=== PATIENT | female | born 1995 | race African-American/Black ===

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

== ENCOUNTER 2017-04-25 13:18 | Emergency (ER) | payer MEDICAID, OTHER ==
[2017-04-25 14:55] LABS: APPEARANCE,URINE SLIGHTLY-CLOUDY; BILIRUBIN,URINE NEGATIVE (NEGATIVE); GLUCOSE, URINE NEGATIVE (NEGATIVE); KETONES,URINE NEGATIVE (NEGATIVE); LEUKOCYTE ESTERASE,URINE TRACE (NEGATIVE); NITRITE,URINE NEGATIVE (NEGATIVE); PROTEIN,URINE 30 mg/dL (NEGATIVE); URINE SPECIFIC GRAVITY 1.031
[2017-04-25] MEDS ORDERED: CIPROFLOXACIN HCL 500 MG TABLET PO ONE (15:05)
[2017-04-25] MEDS ORDERED: METOCLOPRAMIDE HCL 10 MG TABLET PO ONE (15:05)
--- NOTE | 2017-04-25 15:07 | ER Document Report ---
HPI - HPI Patient complains to provider of: nausea Pain Level: 1 Context: Patient is a 21 year old female who presents to the ED complaining of nausea for one week. She otherwise denies any other symptoms. She denies any fever, chills headache, sore throat, abdominal pain, vomiting, diarrhea or constipation , urinary frequency, urinary urgency, pyuria, hematuria, vaginal discharge, pelvic pain. She does admit to chest pain ever since she had a sternum fracture is nonsurgical over the summer. - CONSTITUTIONAL Constitutional: DENIES: Fever, Chills - GASTROINTESTINAL Gastrointestinal: DENIES: Abdominal Pain, Black / Bloody Stools - URINARY Urinary: DENIES: Dysuria, Urgency, Frequency - REPRODUCTIVE Reproductive: DENIES: :, Abnormal bleeding / discharge Past Medical History - Social History Smoking Status: Never Smoker Chew tobacco use (# tins/day): No Frequency of alcohol use: None Drug Abuse: None Family History: Reviewed & Not Pertinent Patient has suicidal ideation: No Patient has homicidal ideation: No Renal/ Medical History: Denies: Hx Peritoneal Dialysis - Immunizations Immunizations up to date: Yes Hx Diphtheria, Pertussis, Tetanus Vaccination: Yes Vertical Provider Document - CONSTITUTIONAL Agree With Documented VS: Yes Notes: PHYSICAL EXAM GENERAL: Alert, interacts well. LUNGS: Clear to auscultation bilaterally, no wheezes, rales, or rhonchi. No respiratory distress. HEART: Regular rate and rhythm. No murmurs, gallops, or rubs. ABDOMEN: Soft, nondistended, nontender. No guarding, rebound, or rigidity.. Bowel sounds present in all 4 quadrants. EXTREMITIES: Moves all 4 extremities spontaneously. No edema, radial and dorsalis pedis pulses 2/4 bilaterally. No cyanosis. NEUROLOGICAL: Alert and oriented x4. Normal speech. PSYCH: Normal affect, normal mood. SKIN: Warm, dry, normal turgor. No rashes or lesions noted. - INFECTION CONTROL TRAVEL OUTSIDE OF THE [place] IN LAST 30 DAYS: No - RESPIRATORY O2 Sat by Pulse Oximetry: 94 Course - Re-evaluation Re-evalutation: 04/25/17 15:07 Patient is a 21-year-old female who is hemodynamically stable, no acute distress afebrile. Evidence of UTI on urine without presents of a positive hCG. Patient declining any STD evaluation at this time. Tolerating p.o. in the department without any difficulty. Stable for discharge home on antibiotics. - Vital Signs Vital signs: Temp Pulse Resp BP Pulse Ox 98.3 F 107 H 20 123/69 94 04/25/17 13:22 04/25/17 13:22 04/25/17 13:22 04/25/17 13:22 04/25/17 13:22 - Laboratory Laboratory results interpreted by me: 04/25/17 14:25 Urine Protein 30 H Urine Urobilinogen 2.0 H Ur Leukocyte Esterase TRACE H Discharge - Discharge Clinical Impression: UTI (urinary tract infection) Qualifiers: Urinary tract infection type: acute cystitis Hematuria presence: without hematuria Qualified Code(s): N30.00 - Acute cystitis without hematuria Condition: Good Disposition: HOME, SELF-CARE Additional Instructions: URINARY TRACT INFECTION: Your evaluation indicates that you have a urinary tract infection. This is due to germs growing in the bladder. This is a common problem. This infection usually responds quickly to antibiotics. Your antibiotic should be taken exactly as prescribed. Drink plenty of fluids -- three to four quarts a day. Occasionally, a bladder anesthetic will be prescribed to help stop the feeling of urgency until the antibiotic has a chance to clear the infection. This may cause your urine to be dark orange. Certain urine infections require a culture. If the doctor obtained a culture, the results will be back in two days. You should call to see if a change in treatment is needed. A repeat urinalysis after you finish treatment is often recommended. The physician will let you know if further testing is required. Call the doctor if you develop fever, chills, flank pain, inability to urinate, or blood in the urine. ANTIBIOTIC THERAPY: You have been given an antibiotic prescription. It's important that you take all the medication, unless instructed otherwise by your physician. Failure to complete the entire course can result in relapse of your condition. Common side effects of antibiotics include nausea, intestinal cramping, or diarrhea. Women may develop vaginal yeast infections, and babies can get yeast (thrush) in the mouth following the use of antibiotics. Contact your physician if you develop significant side effects from this medication. Allergy to this antibiotic can result in hives, wheezing, faintness, or itching. If symptoms of allergy occur, stop the medication and call the doctor. CIPROFLOXACIN: You have been given an antibacterial agent, ciprofloxacin (Cipro). This medicine is not related to the penicillins, sulfas, cephalosporins, or tetracyclines. It is often given to patients who are allergic to these drugs. It has been chosen for you either because other drugs are not appropriate, or because of the nature of your problem. Cipro should not be taken with antacids, as these can decrease its effectiveness. It can be taken without regard to meals. CIPRO SHOULD NOT BE TAKEN BY CHILDREN, NURSING WOMEN, OR WOMEN. Although Cipro is usually well-tolerated, common side effects can include nausea and diarrhea. Contact your doctor if you experience any unusual symptoms while on this medication, such as joint pain or swelling, shortness of breath, wheezing, faintness, or hives. FOLLOW-UP CARE: If you have been referred to a physician for follow-up care, call the physician s office for an appointment as you were instructed or within the next two days. If you experience worsening or a significant change in your symptoms, notify the physician immediately or return to the Emergency Department at any time for re-evaluation. Prescriptions: Ciprofloxacin HCl [Cipro 250 mg Tablet] 1 tab PO BID #6 tab Metoclopramide HCl [Reglan 10 mg Tablet] 1 - 2 tab PO ASDIR PRN #25 tablet PRN Reason:
[2017-04-25 15:31] VITALS: BP 128/80
== END 2017-04-25 15:31 | disposition home or self-care (01) ==
LOC: ER 13:18
DX: N30.00 Acute cystitis without hematuria (principal); R11.0 Nausea; R07.9 Chest pain, unspecified
CPT/HCPCS: 81001; 81025; 99283

== ENCOUNTER 2017-08-06 17:01 | Emergency (ER) | payer OTHER ==
[2017-08-06 17:07] VITALS: BP 133/75
--- NOTE | 2017-08-06 17:30 | ER Document Report ---
HPI - HPI Onset: Last week Onset/Duration: Waxing and waning Pain Level: Denies Context: Patient presents complaining of headache 2 episodes this week but denies any headache pain at this time. Patient also reports generalized abdominal cramping off and on over the past week but denies any abdominal pain today. Patient denies any nausea, vomiting, diarrhea. Patient denies any fever or urinary symptoms. Patient does complain of difficulty staying asleep at night. Patient states that she has been increasing the number of hours that she has been working and that her symptoms coincided with this change in her work schedule. Associated Symptoms: Headache - This week, none now, Other - Insomnia. denies: Nonproductive cough, Productive cough, Fever, Nausea, Vomiting, Rhinnorhea Exacerbated by: Denies Relieved by: Denies Similar symptoms previously: No Recently seen / treated by doctor: No - ROS ROS below otherwise negative: Yes Systems Reviewed and Negative: Yes All other systems reviewed and negative - CONSTITUTIONAL Constitutional: DENIES: Fever, Chills - EENT EENT: DENIES: Sore Throat, Congestion - NEURO Neurology: REPORTS: Headache - Earlier this week, none now - GASTROINTESTINAL Gastrointestinal: REPORTS: Abdominal Pain - Off and on this week, none now - URINARY Urinary: DENIES: Dysuria, Urgency, Frequency - REPRODUCTIVE Reproductive: DENIES: : - DERM Skin Color: Normal Skin Problems: None Past Medical History - General Information source: Patient - Social History Smoking Status: Never Smoker Chew tobacco use (# tins/day): No Frequency of alcohol use: None Drug Abuse: None Occupation: restaurant Lives with: Family Family History: Reviewed & Not Pertinent Patient has suicidal ideation: No Patient has homicidal ideation: No - Medical History Medical History: Negative Renal/ Medical History: Denies: Hx Peritoneal Dialysis Surgical Hx: Negative - Immunizations Immunizations up to date: Yes Hx Diphtheria, Pertussis, Tetanus Vaccination: Yes Vertical Provider Document - CONSTITUTIONAL Agree With Documented VS: Yes Exam Limitations: No Limitations General Appearance: WD/WN, No Apparent Distress - INFECTION CONTROL TRAVEL OUTSIDE OF THE [place] IN LAST 30 DAYS: No - HEENT HEENT: Atraumatic, Normal ENT Exam, Normocephalic - NECK Neck: Normal Inspection, Supple. negative: Lymphadenopathy-Left, Lymphadenopathy-Right - RESPIRATORY Respiratory: Breath Sounds Normal, No Respiratory Distress O2 Sat by Pulse Oximetry: 99 - CARDIOVASCULAR Cardiovascular: Regular Rate, Regular Rhythm, No Murmur - GI/ABDOMEN Gastrointestinal: Abdomen Soft, Abdomen Non-Tender, No Organomegaly, Normal Bowel Sounds - BACK Back: Normal Inspection. negative: CVA Tenderness-Right, CVA Tenderness-Left - MUSCULOSKELETAL/EXTREMETIES Musculoskeletal/Extremeties: MAEW, FROM, Non-Tender - NEURO Level of Consciousness: Awake, Alert, Appropriate Motor/Sensory: No Motor Deficit - DERM Integumentary: Warm, Dry, No Rash Course - Re-evaluation Re-evalutation: 20:00 Patient's abdomen soft, nontender. Patient nontoxic in appearance. Patient denies any headache symptoms at this time. Discussed importance of good sleep hygiene. Patient encouraged to follow-up with the primary doctor for further evaluation of insomnia symptoms. Patient advised that she can take Benadryl [id number] to help with this. - Vital Signs Vital signs: Temp Pulse Resp BP Pulse Ox 97.9 F 78 18 133/75 H 99 08/06/17 17:04 08/06/17 17:04 08/06/17 17:04 08/06/17 17:04 08/06/17 17:04 Discharge - Discharge Clinical Impression: resolved headache, Resolved abdominal pain Insomnia Qualifiers: Insomnia type: unspecified Qualified Code(s): G47.00 - Insomnia, unspecified Condition: Stable Disposition: HOME, SELF-CARE Instructions: Abdominal Pain ([facility]), Headache ([facility]), Insomnia ([facility]) Additional Instructions: Return immediately for any new or worsening symptoms Followup with your primary care provider, call tomorrow to make a followup appointment Follow-up with a primary doctor for further evaluation of your insomnia symptoms. You can take a Benadryl at bedtime to help with your symptoms Speak with your manager business operations to see if you can get a schedule that fits better with your lifestyle Forms: Return to Work Ref[facility]: [facility] [Provider Group] - Follow up as needed
[2017-08-06 18:01] LABS: APPEARANCE,URINE SLIGHTLY-CLOUDY; BILIRUBIN,URINE NEGATIVE (NEGATIVE); COLOR,URINE YELLOW; GLUCOSE, URINE NEGATIVE (NEGATIVE); KETONES,URINE TRACE mg/dL (NEGATIVE); LEUKOCYTE ESTERASE,URINE NEGATIVE (NEGATIVE); NITRITE,URINE NEGATIVE (NEGATIVE); PROTEIN,URINE 30 mg/dL (NEGATIVE); URINE SPECIFIC GRAVITY 1.026; UROBILINOGEN,URINE NEGATIVE mg/dL (<2.0)
== END 2017-08-06 18:34 | disposition home or self-care (01) ==
LOC: ER 17:01
DX: R51 Headache (principal); R10.84 Generalized abdominal pain; G47.00 Insomnia, unspecified
CPT/HCPCS: 81001; 81025; 99284

== ENCOUNTER 2017-12-28 12:11 | Emergency (ER) | payer OTHER ==
[2017-12-28] MEDS ORDERED: ACETAMINOPHEN 325 MG TABLET PO ONE (12:40)
--- NOTE | 2017-12-28 12:43 | ER Document Report ---
ED General Pain - General Chief Complaint: Rib Pain Stated Complaint: ABDOMINAL PAIN Time Seen by Provider: 12/28/17 12:14 Notes: 22-year-old pleasant -Serbian female to the emergency department complaining of a one-week history of right-sided chest pain. No shortness of breath. No fever. No chills. No sweats. Hurts to take a deep breath. Denies any pain or swelling in her legs. Does state that she has a lot of little red dots on both legs. May be it was associated with a new razor that she bought? Denies any significant abdominal pain. No trauma. Not on any medications. Not allergic to any medications. No significant family medical problems. Denies any headache or neck stiffness. Denies any loss of consciousness. Denies any problems with her eyes ears nose or throat. Has not taken anything for pain today. TRAVEL OUTSIDE OF THE [place] IN LAST 30 DAYS: No - HPI Onset: Last week Onset/Duration: Gradual, Constant, Persistent Quality of pain: Achy Severity: Moderate Pain Level: 3 - Related Data Allergies/Adverse Reactions: No Known Allergies Allergy (Verified 12/28/17 12:12) Past Medical History - General Information source: Patient - Social History Smoking Status: Never Smoker Cigarette use (# per day): No Frequency of alcohol use: None Drug Abuse: None Lives with: Family Family History: Reviewed & Not Pertinent Patient has suicidal ideation: No Patient has homicidal ideation: No Renal/ Medical History: Denies: Hx Peritoneal Dialysis - Immunizations Immunizations up to date: Yes Hx Diphtheria, Pertussis, Tetanus Vaccination: Yes Review of Systems - Review of Systems Constitutional: denies: Chills, Diaphoresis, Fever, Malaise, Weakness, Weight gain, Weight loss EENT: denies: Eye pain, Eye discharge, Double vision, Ear pain, Throat pain, Difficulty swallowing, Mouth pain Cardiovascular: denies: Chest pain, Palpitations, Heart racing, Orthopnea, Syncope, Edema Respiratory: Hurts to breathe. denies: Cough, Short of breath, Wheezing Gastrointestinal: denies: Abdominal pain, Diarrhea, Nausea, Vomiting, Constipation, Black stools, Rectal bleeding Genitourinary: denies: Burning, Dysuria, Discharge, Flank pain Female Genitourinary: denies: , Irregular period, Vaginal discharge, Vaginal bleeding Musculoskeletal: denies: Back pain, Joint pain, Muscle pain, Leg swelling, Ankle swelling Hematologic/Lymphatic: See HPI, Other - Red dots the size of a hair follicle bilateral lower extremities, multiple dots.. denies: Blood clots, Easy bleeding , Easy bruising Neurological/Psychological: denies: Confusion, Weakness, Headaches, Numbness Physical Exam - Vital signs Vitals: Temp Pulse Resp BP Pulse Ox 98.1 F 64 16 129/75 H 97 12/28/17 12:15 12/28/17 12:15 12/28/17 12:15 12/28/17 12:15 12/28/17 12:15 Interpretation: Normal - General General appearance: Appears well, Alert - HEENT Head: Normocephalic, Atraumatic Eyes: Normal Pupils: PERRL - Respiratory Respiratory status: No respiratory distress Chest status: Nontender Breath sounds: Normal Chest palpation: Normal - Cardiovascular Rhythm: Regular Heart sounds: Normal auscultation Murmur: No Notes: Clearly reproducible and palpable right lateral mid axillary tenderness. - Abdominal Inspection: Normal Distension: No distension Bowel sounds: Normal Tenderness: Nontender Organomegaly: No organomegaly - Back Back: Normal, Nontender - Extremities General upper extremity: Normal inspection, Nontender, Normal color, Normal ROM , Normal temperature General lower extremity: Normal inspection, Nontender, Normal color, Normal ROM , Normal temperature, Normal weight bearing. No: Scarlet's sign - Neurological Neuro grossly intact: Yes Cognition: Normal Orientation: AAOx4 [place] Coma Scale Eye Opening: Spontaneous Ольга Coma Scale Verbal: Oriented [place] Coma Scale Motor: Obeys Commands [place] Coma Scale Total: 15 Speech: Normal Motor strength normal: LUE, RUE, LLE, RLE Sensory: Normal - Psychological Associated symptoms: Normal affect, Normal mood - Skin Skin Temperature: Warm Skin Moisture: Dry Skin Color: Normal Notes: There are multiple small non-blanchable areas of redness about the size of pinprick. Seem to be in a rather uniform distribution around base of hair follicles. Course - Re-evaluation Re-evalutation: 12/28/17 12:44 At this time patient is completely asymptomatic with exception of pain in the right side of her chest with deep inspiration. Not tachycardic. Not hypoxic. Uncertain etiology of small petechial looking red lizarraga on her legs but more likely due to the new razor. Could be some trauma induced by shaving. Will get blood work to check her platelets and liver function studies. Will get a chest x-ray and then urinalysis and then reassess. 12/28/17 12:51 Pulmonary embolism rule out criteria score of 0 12/28/17 14:00 Laboratory 12/28/17 12/28/17 12/28/17 12:55 12:55 12:55 WBC 8.7 RBC 4.52 Hgb 13.9 Hct 40.6 MCV 90 MCH 30.8 MCHC 34.2 RDW 13.0 Plt Count 260 Seg Neutrophils % 61.3 Lymphocytes % 31.7 Monocytes % 5.9 Eosinophils % 0.8 Basophils % 0.3 Absolute Neutrophils 5.3 Absolute Lymphocytes 2.8 Absolute Monocytes 0.5 Absolute Eosinophils 0.1 Absolute Basophils 0.0 Sodium 142.9 Potassium 4.4 Chloride 102 Carbon Dioxide 27 Anion Gap 14 BUN 8 Creatinine 0.65 Est GFR ( Amer) > 60 Est GFR (Non-Af Amer) > 60 Glucose 93 Calcium 10.0 Total Bilirubin 0.6 Direct Bilirubin 0.2 Neonat Total Bilirubin Not Reportable Neonat Direct Bilirubin Not Reportable Neonat Indirect Bili Not Reportable AST 19 ALT 21 Alkaline Phosphatase 52 Total Protein 7.9 Albumin 4.7 Lipase 150.2 Urine Color YELLOW Urine Appearance CLEAR Urine pH 8.0 Ur Specific [place] 1.015 Urine Protein NEGATIVE Urine Glucose (UA) NEGATIVE Urine Ketones NEGATIVE Urine Blood NEGATIVE Urine Nitrite NEGATIVE Urine Bilirubin NEGATIVE Urine Urobilinogen NEGATIVE Ur Leukocyte Esterase NEGATIVE Urine WBC (Auto) 6 Urine RBC (Auto) 1 Squamous Epi Cells Auto 6 Urine Mucus (Auto) RARE Urine Ascorbic Acid NEGATIVE Urine HCG, Qual NEGATIVE Chest X-Ray 12/28/17 12:38 IMPRESSION: NO ACUTE RADIOGRAPHIC FINDING IN THE CHEST. At this time patient's labs are negative. No significant risk factors for PE. PE RC were rule criteria 0. Will discharge at this time with chest wall pain - Vital Signs Vital signs: Temp Pulse Resp BP Pulse Ox 98.1 F 64 16 129/75 H 97 12/28/17 12:15 12/28/17 12:15 12/28/17 12:15 12/28/17 12:15 12/28/17 12:15 - Laboratory Result Diagrams: 12/28/17 12:55 12/28/17 12:55 Discharge - Discharge Clinical Impression: Right-sided chest wall pain Condition: Good Disposition: HOME, SELF-CARE Instructions: Anti-Inflammatory Medication ([facility]), Chest Wall Pain ([facility]) Additional Instructions: Return immediately if you develop shortness of breath, fever, chills, worsening pain, difficulty breathing or for any other concerns. Prescriptions: Ibuprofen [Motrin 800 mg Tablet] 800 mg PO Q8H PRN 10 Days #30 tab PRN Reason: For Pain Scale 3-4
[2017-12-28 13:19] LABS: ABSOLUTE EOSINOPHILS # (AUTO) 0.1 10^3/uL (0.0-0.6); ABSOLUTE LYMPHOCYTES (AUTO) 2.8 10^3/uL (0.5-4.7); ABSOLUTE MONOCYTES (AUTO) 0.5 10^3/uL (0.1-1.4); ABSOLUTE NEUT (AUTO) 5.3 10^3/uL (1.7-8.2); BASOPHILS % (AUTO) 0.3 % (0-2); EOSINOPHILS % (AUTO) 0.8 % (0-6); HEMATOCRIT 40.6 % (36.0-47.0); HEMOGLOBIN 13.9 g/dL (12.0-15.5); LYMPHOCYTES % (AUTO) 31.7 % (13-45); MEAN CORPUSCULAR HEMOGLOBIN 30.8 pg (27.0-33.4); MEAN CORPUSCULAR HGB CONC 34.2 g/dL (32.0-36.0); MEAN CORPUSCULAR VOLUME 90 fl (80-97); MONOCYTES % (AUTO) 5.9 % (3-13); PLATELET COUNT 260 10^3/uL (150-450); RED BLOOD COUNT 4.52 10^6/uL (3.72-5.28); SEGMENTED NEUTROPHILS % (AUTO) 61.3 % (42-78); TOTAL CELLS COUNTED % (AUTO) 100 %; WHITE BLOOD COUNT 8.7 10^3/uL (4.0-10.5)
[2017-12-28 13:30] LABS: ALANINE AMINOTRANSFERASE 21 U/L (9-52); ALBUMIN 4.7 g/dL (3.5-5.0); ALKALINE PHOSPHATASE 52 U/L (38-126); ANION GAP 14 (5-19); ASPARTATE AMINO TRANSFERASE 19 U/L (14-36); BILIRUBIN,DIRECT 0.2 mg/dL (0.0-0.4); BILIRUBIN,TOTAL 0.6 mg/dL (0.2-1.3); BLOOD UREA NITROGEN 8 mg/dL (7-20); CARBON DIOXIDE 27 mmol/L (22-30); CHLORIDE 102 mmol/L (98-107); GLUCOSE 93 mg/dL (75-110); LIPASE 150.2 U/L (23-300); POTASSIUM 4.4 mmol/L (3.6-5.0); SODIUM 142.9 mmol/L (137-145); TOTAL PROTEIN 7.9 g/dL (6.3-8.2)
--- NOTE | 2017-12-28 13:43 | RADIOLOGY REPORT (SQ) ---
EXAM DESCRIPTION: CHEST 2 VIEWS COMPLETED DATE/TIME: 12/28/2017 1:15 pm REASON FOR STUDY: right sided chest pain COMPARISON: 12/03/2017. EXAM PARAMETERS: NUMBER OF VIEWS: two views TECHNIQUE: Digital Frontal and Lateral radiographic views of the chest acquired. RADIATION DOSE: NA LIMITATIONS: none FINDINGS: LUNGS AND PLEURA: No opacities, masses or pneumothorax. No pleural effusion. MEDIASTINUM AND HILAR STRUCTURES: No masses or contour abnormalities. HEART AND VASCULAR STRUCTURES: Heart normal size. No evidence for failure. BONES: No acute findings. HARDWARE: None in the chest. OTHER: No other significant finding. IMPRESSION: NO ACUTE RADIOGRAPHIC FINDING IN THE CHEST. TECHNICAL DOCUMENTATION: JOB ID: [id number] 2010 [employer]- All Rights Reserved Reading location - IP/workstation name: [email or web address]
[2017-12-28 13:57] LABS: APPEARANCE,URINE CLEAR; BILIRUBIN,URINE NEGATIVE (NEGATIVE); COLOR,URINE YELLOW; GLUCOSE, URINE NEGATIVE (NEGATIVE); KETONES,URINE NEGATIVE (NEGATIVE); LEUKOCYTE ESTERASE,URINE NEGATIVE (NEGATIVE); NITRITE,URINE NEGATIVE (NEGATIVE); PROTEIN,URINE NEGATIVE (NEGATIVE); URINE SPECIFIC GRAVITY 1.015; UROBILINOGEN,URINE NEGATIVE mg/dL (<2.0)
[2017-12-28 14:15] VITALS: BP 141/73
== END 2017-12-28 14:16 | disposition home or self-care (01) ==
LOC: ER 12:11
DX: R07.89 Other chest pain (principal); L53.9 Erythematous condition, unspecified
CPT/HCPCS: 36415; 71046; 80053; 81001; 81025; 83690; 85025; 99284

== ENCOUNTER 2018-02-07 16:09 | Emergency (ER) | payer OTHER ==
[2018-02-07] MEDS ORDERED: ONDANSETRON HCL INJ/PF 4 MG/2 ML SDV IV ONE (16:31)
[2018-02-07] MEDS ORDERED: NORMAL SALINE 1000 ML 1,000 ML IV ONE (16:31)
--- NOTE | 2018-02-07 16:53 | ER Document Report ---
ED General - General Chief Complaint: Vomiting Stated Complaint: VOMITING Time Seen by Provider: 02/07/18 16:25 Notes: 22-year-old female with a three-day history of vomiting and lightheadedness but denies abdominal pain or diarrhea, denies any fevers. States that typically she has 1 day of vomiting when her period starts however this is her third day of her menstrual cycle and she is still vomiting. States nothing else is different about the vomiting and lightheadedness than her usual menstrual vomiting. TRAVEL OUTSIDE OF THE [place] IN LAST 30 DAYS: No - Related Data Allergies/Adverse Reactions: No Known Allergies Allergy (Verified 02/07/18 16:11) Past Medical History - General Information source: Patient - Social History Smoking Status: Never Smoker Chew tobacco use (# tins/day): No Frequency of alcohol use: None Drug Abuse: None Family History: Reviewed & Not Pertinent Patient has suicidal ideation: No Patient has homicidal ideation: No Renal/ Medical History: Denies: Hx Peritoneal Dialysis - Immunizations Immunizations up to date: Yes Hx Diphtheria, Pertussis, Tetanus Vaccination: Yes Review of Systems - Review of Systems Constitutional: See HPI, Weakness EENT: No symptoms reported Cardiovascular: See HPI, Lightheaded Respiratory: No symptoms reported Gastrointestinal: See HPI, Nausea, Vomiting. denies: Abdominal pain, Diarrhea -: Yes All other systems reviewed and negative Physical Exam - Vital signs Vitals: Temp Pulse Resp BP Pulse Ox 98.0 F 101 H 16 120/88 H 99 02/07/18 16:14 02/07/18 16:14 02/07/18 16:14 02/07/18 16:14 02/07/18 16:14 Interpretation: Tachycardic - Notes Notes: GENERAL: Alert, interacts well. Appears anxious and mildly tearful. HEAD: Normocephalic, atraumatic EYES: Pupils equal, round and reactive to light, extraocular movements intact. ENT: Oral mucosa moist, tongue midline. NECK: Full range of motion, supple, trachea midline. LUNGS: Clear to auscultation bilaterally, no wheezes, rales or rhonchi, no respiratory distress. HEART: Regular rate and rhythm, no murmurs, gallops, rubs. ABDOMEN: Soft, nontender, nondistended, bowel sounds present in all 4 quadrants. EXTREMITIES: Moves all 4 extremities spontaneously, no edema, radial and dorsalis pedis pulses 2/4 bilaterally. No cyanosis. NEUROLOGICAL: Alert and oriented x3, normal speech. PSYCH: Normal mood, normal affect. SKIN: Warm, Dry, normal turgor, no rashes or lesions noted. Course - Re-evaluation Re-evalutation: 02/07/18 18:15 CBC shows leukocytosis with white count of 13.8, BMP shows lipase mildly elevated at 365.8. test is negative. Patient was hydrated with a liter of normal saline, given Zofran and then was able to tolerate a cup of water without difficulty. Patient has a very mild case of pancreatitis, will be treated with Zofran and Phenergan, discharged to home, asked to follow a clear liquid diet for the next 2 days then she may start introducing a bland diet and then slowly introduce fat back in. Patient should avoid alcohol. Discharged home. - Vital Signs Vital signs: Temp Pulse Resp BP Pulse Ox 98.0 F 101 H 16 120/88 H 99 02/07/18 16:14 02/07/18 16:14 02/07/18 16:14 02/07/18 16:14 02/07/18 16:14 - Laboratory Result Diagrams: 02/07/18 16:40 02/07/18 16:40 Laboratory results interpreted by me: 02/07/18 02/07/18 16:40 16:40 WBC 13.8 H Seg Neutrophils % 81.9 H Absolute Neutrophils 11.3 H Glucose 116 H Calcium 10.7 H Lipase 365.8 H Discharge - Discharge Clinical Impression: Pancreatitis Qualifiers: Chronicity: acute Pancreatitis type: unspecified pancreatitis type Acute pancreatitis complication: no infection or necrosis Qualified Code(s): K85.90 - Acute pancreatitis without necrosis or infection, unspecified Nausea and vomiting Qualifiers: Vomiting type: unspecified Vomiting Intractability: non-intractable Qualified Code(s): R11.2 - Nausea with vomiting, unspecified Condition: Stable Disposition: HOME, SELF-CARE Additional Instructions: Pancreatitis Pancreatitis is an inflammation of the pancreas, an organ at the back of your abdomen. The pancreas produces insulin and enzymes that digest your food. Pancreatitis can be caused by gallstones in the bile duct, by alcohol or viruses, or by excess fat or calcium in the blood stream. Occasionally, pancreatitis occurs when a stomach ulcer medellin through into the pancreas. We try to find the cause of pancreatitis, but some tests can't be done until the pancreas heals. The usual symptoms of pancreatitis are pain in the pit of the stomach that goes straight through to the back, vomiting, and low-grade fever. Severe cases require hospital admission, but many patients with mild pancreatitis do well at home. You will probably need medicine for pain and for vomiting. Sometimes we prescribe medicine to decrease stomach acid secretion and to decrease flow of pancreatic juices. Start with a diet of clear liquids (soda pop, juices). When the pain is decreasing, you can add some simple starches (potato, toast, applesauce). Avoid proteins and fats until you are completely painfree. When you're better, your doctor may suggest treatment to prevent future pancreatitis (such as gallbladder removal). Avoid alcohol forever. Get immediate treatment for any future episodes. Contact your doctor at once or return here if you have increasing pain, shortness of breath, general swelling, increasing size of the abdomen, continued vomiting, muscle spasms, or other new symptoms. Prescriptions: Ondansetron [Zofran Odt 4 mg Tablet] 1 - 2 tab PO Q4H PRN #15 tab.rapdis PRN Reason: For Nausea/Vomiting
[2018-02-07 16:56] LABS: ABSOLUTE LYMPHOCYTES (AUTO) 1.9 10^3/uL (0.5-4.7); ABSOLUTE MONOCYTES (AUTO) 0.6 10^3/uL (0.1-1.4); ABSOLUTE NEUT (AUTO) 11.3 10^3/uL (1.7-8.2); BASOPHILS % (AUTO) 0.2 % (0-2); HEMATOCRIT 42.3 % (36.0-47.0); HEMOGLOBIN 14.7 g/dL (12.0-15.5); LYMPHOCYTES % (AUTO) 13.8 % (13-45); MEAN CORPUSCULAR HEMOGLOBIN 30.7 pg (27.0-33.4); MEAN CORPUSCULAR HGB CONC 34.6 g/dL (32.0-36.0); MEAN CORPUSCULAR VOLUME 89 fl (80-97); MONOCYTES % (AUTO) 4.1 % (3-13); PLATELET COUNT 317 10^3/uL (150-450); RED BLOOD COUNT 4.77 10^6/uL (3.72-5.28); RED CELL DISTRIBUTION WIDTH 13.2 % (11.5-14.0); SEGMENTED NEUTROPHILS % (AUTO) 81.9 % (42-78); TOTAL CELLS COUNTED % (AUTO) 100 %; WHITE BLOOD COUNT 13.8 10^3/uL (4.0-10.5)
[2018-02-07 17:13] LABS: ANION GAP 13 (5-19); BLOOD UREA NITROGEN 14 mg/dL (7-20); CALCIUM 10.7 mg/dL (8.4-10.2); CARBON DIOXIDE 26 mmol/L (22-30); CHLORIDE 102 mmol/L (98-107); GLUCOSE 116 mg/dL (75-110); LIPASE 365.8 U/L (23-300); POTASSIUM 3.7 mmol/L (3.6-5.0); SODIUM 140.5 mmol/L (137-145)
[2018-02-07] MEDS ORDERED: ONDANSETRON ODT 4 MG TAB (6 TAB/ER DISP) PO PRN (18:17)
[2018-02-07] MEDS ORDERED: PROMETHAZINE HCL 25 MG SUPP (4 SUPP/ER DISP) PR ONE (18:17)
[2018-02-07 18:37] VITALS: BP 133/66
== END 2018-02-07 18:38 | disposition home or self-care (01) ==
LOC: ER 16:09
DX: K85.90 Acute pancreatitis without necrosis or infection, unspecified (principal); R11.2 Nausea with vomiting, unspecified; R42 Dizziness and giddiness; R53.1 Weakness
CPT/HCPCS: 36415; 80048; 83690; 84703; 85025; 96361; 96374; 99283

== ENCOUNTER 2018-03-22 15:32 | Inpatient (IN) | payer OTHER ==
[2018-03-22] MEDS ORDERED: NORMAL SALINE 1000 ML 1,000 ML IV ONE ×3 (15:55→17:47)
--- NOTE | 2018-03-22 16:02 | ER Document Report ---
ED General - General Mode of Arrival: Ambulatory Information source: Patient TRAVEL OUTSIDE OF THE [place] IN LAST 30 DAYS: No <ADILSON SWANSON - Last Filed: 03/22/18 20:33> <EPHRIAM BRASHER - Last Filed: 03/22/18 21:52> - General Chief Complaint: Numbness Stated Complaint: TINGLING IN FEET Time Seen by Provider: 03/22/18 15:45 Notes: Patient is a 22 year old female with a reported history of recurrent UTIs presents to the emergency department complaining of numbness in the bilateral lower extremities onset last night. At bedside, patient states she is also having her heart racing but is unsure of when it started. Patient states she was seen and discharged from this emergency department a little over a month ago and was diagnosed with Pancreatitis. She states 1 week ago, she presented to [facility] and was diagnosed with an UTI that progressed into her lungs and was discharged home with antibiotics. Patient also complains of back pain, vomiting, and decreased appetite onset 2 days ago. Patient denies any dysuria or abdominal pain or a history of hospital admissions or surgeries. According to records, patient was started on Macrobid last week. (ADILSON SWANSON) - Related Data Allergies/Adverse Reactions: No Known Allergies Allergy (Verified 03/22/18 15:33) Past Medical History - General Information source: Patient - Social History Smoking Status: Never Smoker Cigarette use (# per day): No Chew tobacco use (# tins/day): No Smoking Education Provided: No Frequency of alcohol use: None Family History: Reviewed & Not Pertinent - Immunizations Immunizations up to date: Yes Hx Diphtheria, Pertussis, Tetanus Vaccination: Yes <ADILSON SWANSON - Last Filed: 03/22/18 20:33> Review of Systems - Review of Systems Constitutional: No symptoms reported EENT: No symptoms reported Cardiovascular: See HPI, Heart racing Respiratory: No symptoms reported Gastrointestinal: See HPI, Vomiting, Poor appetite Genitourinary: No symptoms reported Female Genitourinary: No symptoms reported Musculoskeletal: See HPI, Back pain Skin: No symptoms reported Hematologic/Lymphatic: No symptoms reported Neurological/Psychological: No symptoms reported -: Yes All other systems reviewed and negative <ADILSON SWANSON - Last Filed: 03/22/18 20:33> Physical Exam - General General appearance: Appears well, Anxious In distress: None - HEENT Head: Normocephalic, Atraumatic Eyes: Normal Conjunctiva: Normal Extraocular movements intact: Yes Pupils: PERRL Mucous membranes: Dry - Respiratory Respiratory status: No respiratory distress Chest status: Nontender Breath sounds: Normal Chest palpation: Normal - Cardiovascular Rhythm: Tachycardia Heart sounds: Normal auscultation Murmur: No Friction rub: No Gallop: None auscultated - Abdominal Inspection: Normal Distension: No distension Bowel sounds: Normal Tenderness: Nontender Organomegaly: No organomegaly - Back Back: CVA tenderness - Bilateral - Extremities General upper extremity: Normal ROM General lower extremity: Normal ROM - Neurological Neuro grossly intact: Yes Cognition: Normal Orientation: AAOx4 [place] Coma Scale Eye Opening: Spontaneous [place]ль[place] Coma Scale Verbal: Oriented Ольга Coma Scale Motor: Obeys Commands [place] Coma Scale Total: 15 Speech: Normal - Psychological Associated symptoms: Anxious <ADILSON SWANSON - Last Filed: 03/22/18 20:33> - Respiratory Respiratory status: Respiratory distress - Mild, Retractions Chest status: Nontender Breath sounds: Decreased air movement - Right lung <EPHRAIM BRASHER - Last Filed: 03/22/18 21:52> - Vital signs Vitals: Temp Pulse Resp BP Pulse Ox 98.2 F 168 H 16 108/70 98 03/22/18 15:37 03/22/18 15:37 03/22/18 15:37 03/22/18 15:37 03/22/18 15:37 Course - Laboratory Result Diagrams: 03/22/18 15:47 03/22/18 15:47 <ADILSON SWANSON - Last Filed: 03/22/18 20:33> - Laboratory Result Diagrams: 03/22/18 15:47 03/22/18 15:47 <EPHRAIM BRASHER - Last Filed: 03/22/18 21:52> - Re-evaluation Re-evalutation: 03/22/18 17:42 Dr. Harper accepts patient for admission. 03/22/18 18:37 Dr. Perez from [facility] accepts patient for transfer to [facility] to [facility]. (ADILSON SAWNSON) 17:30 Temp 98 HR 120s BP 132/85 RR 24 100% 2L nc R lung with no raiza movement Good capiulalry refill Skin cool Patient is a 22-year-old female who comes in complaining of tingling in her feet. Patient states that she was recently at [facility] and treated for urinary tract infection but she cannot remember the name of the antibiotic. Also stated something about it going into her lung. Received records from [facility]. Patient was diagnosed with UTI and also had nonspecific flank pain. Questionable pleural effusion and right chest wall on CT abdomen pelvis. Patient is a difficult historian. States she recently thinks she had a cough. Denies any pain in her chest. She does have an increased respiratory rate although she appears anxious. More concerning however is her heart rate of 168 on presentation. Patient was given fluids and sepsis protocol was started due to gait decreased breath sounds in her right lung. Patient's initial WBC is 33. Initial lactate 2.9. Chest x-ray showing large pleural effusion. Patient was initially discussed with the hospitalist after antibiotics had been initiated. Recommend chest CT. Chest CT with probable empyema. There is no pulmonology nor cardiothoracic surgery available at this institution. Discussed with patient and she will be transferred to [facility]. Patient was initially discussed with Dr. Horne from the ICU. Recommends discussing with the hospitalist. Spoke with Dr. Malone who will admit the patient to the PCU. Discussed with patient and family at length who agree with this plan. Blood and urine cultures had been initiated before antibiotics started. Repeat lactate 1.5 03/22/18 21:30 Transport here for patient. She is still tachycardic but stable for transfer. (EPHRAIM BRASHER) - Vital Signs Vital signs: Temp Pulse Resp BP Pulse Ox 98 F 129 H 29 H 111/63 99 03/22/18 19:40 03/22/18 19:40 03/22/18 21:01 03/22/18 21:00 03/22/18 21:01 - Laboratory Laboratory results interpreted by sd: 03/22/18 03/22/18 03/22/18 15:47 15:47 15:47 WBC 33.0 H* Hgb 11.8 L Hct 34.8 L Plt Count 635 H Seg Neuts % (Manual) 79 H Abs Neuts (Manual) 26.1 H Abs Lymphs (Manual) 5.3 H Abs Monocytes (Manual) 1.7 H PT Sodium 134.1 L Chloride 90 L Carbon Dioxide 32 H Glucose 123 H POC Glucose Lactic Acid 2.9 H Direct Bilirubin 0.5 H AST 65 H Alkaline Phosphatase 159 H Albumin 3.4 L Lipase 487.4 H Urine Protein Urine Urobilinogen 03/22/18 03/22/18 03/22/18 15:47 15:59 17:30 WBC Hgb Hct Plt Count Seg Neuts % (Manual) Abs Neuts (Manual) Abs Lymphs (Manual) Abs Monocytes (Manual) PT 20.9 H Sodium Chloride Carbon Dioxide Glucose POC Glucose 111 H Lactic Acid Direct Bilirubin AST Alkaline Phosphatase Albumin Lipase Urine Protein 30 H Urine Urobilinogen 4.0 H Critical Care Note - Critical Care Note Total time excluding time spent on procedures (mins): 75 - Evaluation and management of sepsis with multiple re-evaluations, consultation with specialist , coordination of transfer, counseling patient and family, multiple re- evaluations <EPHRAIM BRASHER - Last Filed: 03/22/18 21:52> Discharge <ADILSON SWANSON - Last Filed: 03/22/18 20:33> - Discharge Admitting Provider: Hospitalist Unit Admitted: ICU <EPHRAIM BRASHER - Last Filed: 03/22/18 21:52> - Discharge Clinical Impression: Pleural effusion, Empyema Sepsis Qualifiers: Sepsis type: sepsis due to unspecified organism Qualified Code(s): A41.9 - Sepsis, unspecified organism Pneumonia Qualifiers: Pneumonia type: due to unspecified organism Laterality: right Lung location: unspecified part of lung Qualified Code(s): J18.9 - Pneumonia, unspecified organism Condition: Stable Disposition: ADMITTED INPATIENT Scribe Attestation: 03/22/18 21:43 I personally performed the services described in the documentation, reviewed and edited the documentation which was dictated to the scribe in my presence, and it accurately records my words and actions, except for the lung exam. Patient had decreased breath sounds in the right lung space and had some mild retractions with mild respiratory distress on presentation. (EPHRAIM BRASHER) Scribe Documentation - Scribe Written by Scribe:: Tressa Smith, 03/22/2018 16:03 acting as scribe for :: Zehra <ADILSON SWANSON - Last Filed: 03/22/18 20:33>
[2018-03-22 16:21] LABS: HEMATOCRIT 34.8 % (36.0-47.0); HEMOGLOBIN 11.8 g/dL (12.0-15.5); MEAN CORPUSCULAR HEMOGLOBIN 29.7 pg (27.0-33.4); MEAN CORPUSCULAR HGB CONC 33.8 g/dL (32.0-36.0); MEAN CORPUSCULAR VOLUME 88 fl (80-97); PLATELET COUNT 635 10^3/uL (150-450); RED BLOOD COUNT 3.97 10^6/uL (3.72-5.28); RED CELL DISTRIBUTION WIDTH 13.6 % (11.5-14.0)
[2018-03-22 16:24] LABS: VENOUS BLOOD BASE EXCESS 2.5 mmol/L; VENOUS BLOOD HCO3 28.3 mmol/L (20-32); VENOUS BLOOD PCO2 46.6 mmHg (35-63); VENOUS BLOOD PH 7.4 (7.30-7.42)
[2018-03-22 16:29] LABS: INTERNATIONAL RATION (INR) 1.71; PROTHROMBIN TIME 20.9 SEC (11.4-15.4)
[2018-03-22 16:36] LABS: ALANINE AMINOTRANSFERASE 48 U/L (9-52); ALBUMIN 3.4 g/dL (3.5-5.0); ALKALINE PHOSPHATASE 159 U/L (38-126); ANION GAP 12 (5-19); ASPARTATE AMINO TRANSFERASE 65 U/L (14-36); BILIRUBIN,DIRECT 0.5 mg/dL (0.0-0.4); BILIRUBIN,TOTAL 1.3 mg/dL (0.2-1.3); BLOOD UREA NITROGEN 13 mg/dL (7-20); CALCIUM 9.5 mg/dL (8.4-10.2); CARBON DIOXIDE 32 mmol/L (22-30); CHLORIDE 90 mmol/L (98-107); GLUCOSE 123 mg/dL (75-110); LIPASE 487.4 U/L (23-300); POTASSIUM 4.3 mmol/L (3.6-5.0); SODIUM 134.1 mmol/L (137-145); TOTAL PROTEIN 7.6 g/dL (6.3-8.2)
[2018-03-22] MEDS ORDERED: CEFTRIAXONE 1 GM/D5W RTU 50 ML IV ONE (16:44)
[2018-03-22 16:46] LABS: ABSOLUTE LYMPHOCYTES# (MANUAL) 5.3 10^3/uL (0.5-4.7); ABSOLUTE MONOCYTES # (MANUAL) 1.7 10^3/uL (0.1-1.4); ABSOLUTE NEUTROPHILS# (MANUAL) 26.1 10^3/uL (1.7-8.2); BASOPHILS % (MANUAL) 0 % (0-2); EOSINOPHILS % (MANUAL) 0 % (0-6); LYMPHOCYTES % (MANUAL) 16 % (13-45); MONOCYTES % (MANUAL) 5 % (3-13); SEGMENTED NEUTROPHILS % (MAN) 79 % (42-78); TOTAL CELLS COUNTED 100
[2018-03-22 16:48] LABS: PLATELET COMMENT INCREASED; PLATELET GIANT PRESENT; POLYCHROMASIA SLIGHT; TOXIC VACUOLATION PRESENT
[2018-03-22] MEDS ORDERED: PIPERACILLIN/TAZOBACTAM 3.375 GM VIAL IV ONE (16:48)
--- NOTE | 2018-03-22 16:48 | RADIOLOGY REPORT (SQ) ---
EXAM DESCRIPTION: CHEST SINGLE VIEW COMPLETED DATE/TIME: 03/22/2018 4:18 pm REASON FOR STUDY: Possible sepsis COMPARISON: Chest x-ray 12/28/2017. EXAM PARAMETERS: NUMBER OF VIEWS: One view. TECHNIQUE: Single frontal radiographic view of the chest acquired. RADIATION DOSE: NA LIMITATIONS: None. FINDINGS: LUNGS AND PLEURA: Interval development of large right-sided pleural effusion with airspace opacity at the right lung. Only a small area of aeration remains at the right lung apex. The left lung is clear. MEDIASTINUM AND HILAR STRUCTURES: There is obscure a mendoza of the right hilum. HEART AND VASCULAR STRUCTURES: There is obscure a mendoza of the right heart border. No overt vascular congestion the left lung. BONES: No acute findings. HARDWARE: None in the chest. IMPRESSION: Interval development of a large right-sided pleural effusion with airspace opacity at th e right lung, may be secondary to atelectasis or pneumonia. TECHNICAL DOCUMENTATION: JOB ID: [id number] 2010 [email or web address]- All Rights Reserved Reading location - IP/workstation name: [email or web address]
[2018-03-22] MEDS ORDERED: VANCOMYCIN HCL INJ 1000 MG VIAL IV ONE (17:05)
[2018-03-22 17:50] LABS: APPEARANCE,URINE SLIGHTLY-CLOUDY; BILIRUBIN,URINE NEGATIVE (NEGATIVE); COLOR,URINE AMBER; GLUCOSE, URINE NEGATIVE (NEGATIVE); KETONES,URINE NEGATIVE (NEGATIVE); LEUKOCYTE ESTERASE,URINE NEGATIVE (NEGATIVE); NITRITE,URINE NEGATIVE (NEGATIVE); PROTEIN,URINE 30 mg/dL (NEGATIVE); URINE SPECIFIC GRAVITY 1.027
[2018-03-22] MEDS ORDERED: NORMAL SALINE 1000 ML 1,000 ML IV PRN (18:03)
[2018-03-22 18:05] LABS: URINE AMPHETAMINES SCREEN NEGATIVE; URINE BARBITURATES SCREEN NEGATIVE; URINE BENZODIAZEPINES SCREEN NEGATIVE; URINE COCAINE SCREEN NEGATIVE; URINE MARIJUANA (THC) SCREEN NEGATIVE; URINE METHADONE SCREEN NEGATIVE; URINE PHENCYCLIDINE SCREEN NEGATIVE
[2018-03-22] MEDS ORDERED: VANCOMYCIN HCL 0 MG in DEXTROSE 5%-WATER 250 ML IV NR (18:15)
--- NOTE | 2018-03-22 18:33 | RADIOLOGY REPORT (SQ) ---
EXAM DESCRIPTION: CT CHEST WITH COMPLETED DATE/TIME: 03/22/2018 6:11 pm REASON FOR STUDY: evaluate pleural effusion COMPARISON: None. TECHNIQUE: CT scan of the chest performed using helical scanning technique with dynamic intravenous contrast injection. Images reviewed with lung, soft tissue and bone windows. Reconstructed coronal and sagittal MPR and MIP images reviewed. All images stored on PACS. All CT scanners at this facility use dose modulation, iterative reconstruction, and/or weight based d osing when appropriate to reduce radiation dose to as low as reasonably achievable (ALARA). [facility]: Dose Right [facility]: CareDose [facility]: Dose Right [facility]: Teradose 4D [facility]: [place] CONTRAST TYPE AND DOSE: contrast/concentration: Isovue 350.00 mg/ml; Total Contrast Delivered: 80.0 ml; Total Saline Delivered: 55.0 ml RENAL FUNCTION: GFR > 60. RADIATION DOSE: CT Rad equipment meets quality standard of care and radiation dose reduction techniq ues were employed. CTDIvol: 4.9 mGy. DLP: 212 mGy-cm. . LIMITATIONS: None. FINDINGS: LUNGS AND PLEURA: Large loculated empyema versus mass posterior right lung. Compressive a telectasis in the middle lobe and right lower lobe. There are 2, possibly 3 nodules in the left lowe r lobe, the largest 8 mm. HILAR AND MEDIASTINAL STRUCTURES: No identified masses or abnormal nodes. HEART AND VASCULAR STRUCTURES: There is mass effect on the left atrium. No pericardial effusion. HARDWARE: None in the chest. UPPER ABDOMEN: No significant findings. Limited exam. THYROID AND OTHER SOFT TISSUES: No masses. No adenopathy. BONES: No significant finding. OTHER: No other significant finding. IMPRESSION: Loculated right pleural effusion. There is a large abscess or mass occupying most of th e right chest cavity. Pulmonary nodules left lower lobe. TECHNICAL DOCUMENTATION: JOB ID: [id number] Quality ID # [id number]: Final reports with documentation of one or more dose reduction techniques (e.g., Au tomated exposure control, adjustment of the mA and/or kV according to patient size, use of iterative reconstruction technique) 2010 [employer]- All Rights Reserved Reading location - IP/workstation name: [email or web address] [id number]
[2018-03-22] MEDS ORDERED: LEVOFLOXACIN 750 MG/D5W RTU 750 MG/150 ML RTUPB IV ONE ×2 (18:41→19:00)
--- NOTE | 2018-03-22 18:44 | PDOC H&P ---
History of Present Illness Admission Date/PCP: 03/22/18 18:07 COLBY BUNN MD Patient complains of: Shortness of breath History of Present Illness: This is a consult note on: MARLEEN SILVA is a 22 year old female denies significant past medical history. Presented with shortness of breath, worsening over the past 2 weeks. Reports weight loss, night sweats. Denies sick contact. She has had cough but no hemoptysis. Patient reports recent admission at [facility] in [place] where she was treated for UTI. Patient was discharged on nitrofurantoin. She reports fatigue, shortness of breath. Evaluation in the ED significant for leukocytosis with white count 33,000 and chest x-ray revealing large right pleural effusion and suspicious for pneumonia, as well as tachycardia in the 150s. Lactic acid was 2.9. She was treated with Zosyn and Vanco, IV fluid bolus, referred to hospitalist service for admission. Patient reports HIV -6 months ago, denies IV drug use. She does not smoke and denies alcohol use. She lives with her boyfriend. Social History Information Source: Patient, Relative Smoking Status: Never Smoker Family History Family History: Reviewed & Not Pertinent Parental Family History Reviewed: Yes Children Family History Reviewed: Yes Sibling(s) Family History Reviewed.: Yes Medication/Allergy Home Medications: Ondansetron [Zofran Odt 4 mg Tablet] 1 - 2 tab PO Q4H PRN #15 tab.rapdis Allergies/Adverse Reactions: No Known Allergies Allergy (Verified 03/22/18 15:33) Review of Systems Review of Systems: CONSTITUTIONAL : Fever, chills --YES; fatigue -- YES EENT: Denies eye, ear, throat, or mouth pain or symptoms. Denies nasal or sinus congestion or discharge. Denies throat, tongue, or mouth swelling or difficulty swallowing. CARDIOVASCULAR: Denies chest pain. RESPIRATORY: As in HPI. GASTROINTESTINAL: Denies abdominal pain or distention. Denies nausea, vomiting , or diarrhea. No rectal bleeding. GENITOURINARY: Urinary symptoms -- no. MUSCULOSKELETAL: No acute weakness SKIN: Denies rash, lesions or sores. HEMATOLOGIC : Denies easy bruising or bleeding. LYMPHATIC: Denies swollen, enlarged glands. NEUROLOGICAL: New weakness, headaches, slured speach - No PSYCHIATRIC: Changes anxiety or stress, depression, suicidal ideation, or homicidal ideation -- No ALL OTHER SYSTEMS REVIEWED AND NEGATIVE. Physical Exam Vital Signs: Temp Pulse Resp BP Pulse Ox 98.2 F 168 H 24 H 122/85 99 03/22/18 15:37 03/22/18 15:37 03/22/18 16:04 03/22/18 16:04 03/22/18 15:48 GENERAL: Well-developed, ill-appearing, but no acute distress HEENT: Normocephalic/atraumatic, PERRL, EOMI, o/m mildly dry, NECK supple, no JVD CARDIOVASCULAR: Tachycardic, normal S1-S2 LUNGS: Decreased breath sounds right base ABDOMEN: Soft, NT, NL bowel sounds EXTREMITIES: No edema, clubbing, cyanosis NEUROLOGICAL: Alert, oriented x 3, there is generalized weakness but no focal weakness Results Impressions: Chest X-Ray 03/22/18 15:55 IMPRESSION: Interval development of a large right-sided pleural effusion with airspace opacity at the right lung, may be secondary to atelectasis or pneumonia. Assessment & Plan - Diagnosis (1) Sepsis Is this a current diagnosis for this admission?: Yes (3) Pneumonia Qualifiers: Pneumonia type: due to unspecified organism - Plan Summary Plan Summary: Patient's right pleural effusion is concerning as well as recurrent infection in this young patient. I asked ED doctor order a CT of the chest. It is suspicious for mass versus empyema. Patient will be transferred to a tertiary care center as we do not have a trap setter and/or CV-surgery available at this institution at this time. For now recommend broad-spectrum antibiotics, possibly consisting of Vanco, Zosyn, and Levaquin pending further evaluation at a tertiary facility. Thank you for this consult. Please let us know if we can be of further assistance.
[2018-03-22 19:00] LABS: A TYPE INFLUENZA AG NEGATIVE (NEGATIVE); B INFLUENZA AG NEGATIVE (NEGATIVE)
[2018-03-22] MEDS ORDERED: FENTANYL CITRATE INJ/PF 100 MCG/2 ML AMPUL IV ONE (20:49)
[2018-03-22 21:16] VITALS: BP 111/63
--- NOTE | 2018-03-22 22:03 | EKG REPORT ---
SEVERITY:- BORDERLINE ECG - SINUS TACHYCARDIA BORDERLINE RIGHT AXIS DEVIATION BORDERLINE T ABNORMALITIES, ANTERIOR LEADS : Confirmed by: Michael Jorgensen 22-Mar-2018 22:02:08
[2018-03-23] MEDS ORDERED: VANCOMYCIN HCL INJ 1000 MG VIAL IV PRN (03:00)
[2018-03-23] MEDS ORDERED: VANCOMYCIN HCL 1,000 MG in DEXTROSE 5%-WATER 250 ML IV ONE (05:00)
[2018-03-23] MEDS ORDERED: PIPERACILLIN SODIUM/TAZOBACTAM 3.375 GM in NORMAL SALINE 100 ML IV SCH ×3 (09:00)
[2018-03-23] MEDS ORDERED: LEVOFLOXACIN 750 MG/D5W RTU 750 MG/150 ML RTUPB IV SCH (10:00)
--- NOTE | 2018-03-23 11:34 | XCELERA REPORT ---
[address] [address] Transthoracic Echocardiogram Report Name: MARLEEN SILVA Age: 22 yrs Gender: Female : 1995 Patient Status: Inpatient Patient Location: [place] [address]^A Study Date: 03/22/2018 07:39 PM Height: 70 in Weight: 121 lb BSA: 1.7 m2 Procedure: A complete two-dimensional transthoracic echocardiogram was performed (2D, M-mode, spectral and color flow Doppler). The study was technically difficult with many images being suboptimal in quality. Reason For Study: Right Pleural effusion Ordering Physician: EAN WARREN Performed By: MARC Interpretation Summary The left ventricular ejection fraction is normal. There is borderline concentric left ventricular hypertrophy. The left ventricle is grossly normal size. LV diastolic function could not be adequately assessed. Wall motion cannot be accurately commented on, but no definite regional wall motion abnormalities noted. There is normal right ventricular wall thickness. The right ventricle is grossly normal size. The left atrial size is normal. The right atrium is normal. There is a trace amount of mitral regurgitation There is no mitral valve stenosis. MV is thickened in certain views There is no aortic valve stenosis No aortic regurgitation is present. There is no tricuspid stenosis. No tricuspid regurgitation. The aortic root is not well visualized but is probably normal size. The inferior vena cava was not well visualized Small pericardial effusion. There are no echocardiographic or Doppler indications for cardiac tamponade Tachycardia noted during the study. MMode/2D Measurements & Calculations RVDd: 2.2 cm LVIDd: 3.4 cm FS: 32.1 % Ao root diam: 2.7 cm IVSd: 1.4 cm LVIDs: 2.3 cm EDV(Teich): 47.1 ml Ao root area: 5.6 cm2 LVPWd: 1.2 cm ESV(Teich): 18.1 ml LA dimension: 1.2 cm EF(Teich): 61.4 % LVOT diam: 2.1 cm LVOT area: 3.6 cm2 Doppler Measurements & Calculations MV E max sabino: MV P1/2t max sabino: Ao V2 max: LV V1 max P.4 cm/sec 153.4 cm/sec 149.3 cm/sec 6.0 mmHg MV A max sabino: MV P1/2t: 34.3 msec Ao max PG: LV V1 max: 123.4 cm/sec MVA(P1/2t): 6.4 cm2 8.9 mmHg 122.4 cm/sec MV E/A: 0.70 MV dec slope: ESTEE(V,D): 2.9 cm2 1308 cm/sec2 MV dec time: 0.07 sec PA V2 max: MV P1/2t-pr_phl: 101.8 cm/sec 34.3 msec PA max P.1 mmHg Left Ventricle The left ventricle is grossly normal size. There is borderline concentric left ventricular hypertrophy. The left ventricular ejection fraction is normal. LV diastolic function could not be adequately assessed. Wall motion cannot be accurately commented on, but no definite regional wall motion abnormalities noted. Right Ventricle The right ventricle is grossly normal size. There is normal right ventricular wall thickness. The right ventricular systolic function is normal. Atria The right atrium is normal. The left atrial size is normal. Interarterial septum not well visualized and not well dopplered. Cannot comment on ASD/PFO presence. Mitral Valve The mitral valve is grossly normal. A vegetation on the mitral valve cannot be excluded. There is no mitral valve stenosis. There is a trace amount of mitral regurgitation. Aortic Valve The aortic valve is not well visualized secondary to technical limitations. There is no aortic valve stenosis. No aortic regurgitation is present. Tricuspid Valve The tricuspid valve is not well visualized, but is grossly normal. There is no tricuspid stenosis. No tricuspid regurgitation. Pulmonic Valve The pulmonic valve is not well visualized. Great Vessels The aortic root is not well visualized but is probably normal size. The inferior vena cava was not well visualized. Effusions Small pericardial effusion. There are no echocardiographic or Doppler indications for cardiac tamponade. Incidental Findings Tachycardia noted during the study. : EAN WARREN > Michael Jorgensen
[2018-03-24 11:29] LABS: PATH REVIEW PATHOLOGIST REVIEWED
== END 2018-03-22 21:10 | disposition short-term general hospital (02) | DRG 871 ==
LOC: ER 15:32 → EH 18:07
PROVIDERS: ADMIT Internal Medicine; ATTEND Internal Medicine
DX: A41.9 Sepsis, unspecified organism (principal); J18.9 Pneumonia, unspecified organism; R63.4 Abnormal weight loss
CPT/HCPCS: 36415; 71045; 71260; 80053; 80307; 81001; 82803; 82962; 83605; 83690; 84484; 84702; 85025; 85610; 87040; 87086; 87804; 93005; 93010; 93306; 96361; 96365; 96366; 96367; 96375; 99291; 99292; J1956; J2543; J3010; J3370; J7030